=== PATIENT | female | born 1995 | race African-American/Black ===

== ENCOUNTER 2018-11-13 08:00 | Day surgery (SDC) | payer OTHER ==
[2018-11-13] MEDS ORDERED: PROPOFOL 200 MG/20 ML VIAL IV ONE (08:24)
[2018-11-13] MEDS ORDERED: LIDOCAINE 1% MPF 5 ML VIAL ONE (08:24)
[2018-11-13] MEDS ORDERED: MIDAZOLAM HCL 2 MG/2 ML INJ ONE (08:24)
[2018-11-13] MEDS ORDERED: DEXAMETHASONE 10 MG/ML VIAL ONE (08:24)
[2018-11-13] MEDS ORDERED: ONDANSETRON 4 MG/2 ML VIAL ONE ×2 (08:25→13:56)
[2018-11-13] MEDS ORDERED: NS 0.9% VIAL 10 ML ONE ×2 (08:25→08:34)
[2018-11-13] MEDS ORDERED: FENTANYL CITR 250 MCG/5 ML ONE ×2 (08:25→12:08)
[2018-11-13] MEDS ORDERED: VECURONIUM 10 MG/VIAL IV ONE (08:25)
[2018-11-13] MEDS ORDERED: CEFAZOLIN 1GM (PREMIX IV) 0 GM/0 ML BAG ONE (08:32)
[2018-11-13] MEDS ORDERED: SCOPOLAMINE HYDROBROMIDE PATCH TD ONE (08:32)
[2018-11-13] MEDS ORDERED: Ringers Lactate 1,000 ML IV ONE ×2 (08:32→08:35)
[2018-11-13] MEDS ORDERED: Mastisol Adhesive Liq ONE (08:34)
[2018-11-13] MEDS ORDERED: CEFAZOLIN 1GM (PREMIX IV) 1 GM/50 ML BAG ONE (08:34)
[2018-11-13] MEDS ORDERED: GENTAMICIN SULF 80 MG/2ML INJ ONE (08:34)
[2018-11-13] MEDS ORDERED: BACITRACIN 50000 UNIT VIAL ONE (08:35)
[2018-11-13] MEDS ORDERED: CLINDAMYCIN INJ 300 MG in NA CHLORIDE 0.9% 50 ML IV ONE (09:00)
[2018-11-13] MEDS ORDERED: METOCLOPRAMIDE 10 MG/2mL INJ ONE (10:23)
[2018-11-13] MEDS ORDERED: LABETALOL 20 MG/4ML SYRINGE IV ONE (10:59)
[2018-11-13] MEDS ORDERED: ROCURONIUM 50 MG/5 ML VIAL IV ONE ×2 (10:59→13:00)
[2018-11-13] MEDS ORDERED: Phenylephrine HCl 10 MG/ML 1 ML VIAL ONE (13:07)
[2018-11-13] MEDS ORDERED: NS 0.9% VIAL 20 ML ONE (13:08)
[2018-11-13] MEDS ORDERED: KETOROLAC 30 MG/ML INJ ONE ×2 (13:43→14:14)
[2018-11-13] MEDS ORDERED: GLYCOPYRROLATE 0.2 MG/ML SYR ONE (13:43)
[2018-11-13] MEDS ORDERED: NEOSTIGMINE 1 MG/ML -5 ML SYRINGE ONE (13:56)
[2018-11-13] MEDS: Ringers Lactate 1,000 ML IV ONE ×2 (14:14→14:19)
[2018-11-13] MEDS: HYDROMORPHONE HCL 2 MG/ML inj ONE ×2 (14:36→14:42)
--- NOTE | 2018-11-13 15:06 | RAD REPORT ---
EXAM DESCRIPTION: RAD - Chest Single View - 11/13/2018 2:44 pm CLINICAL HISTORY: Shortness of breath, possible aspiration COMPARISON: None. TECHNIQUE: AP portable chest image was obtained in semi upright positioning 1442 hours . FINDINGS: Patient is status post bilateral breast surgery. Drain tubes are seen along the lateral as pect of the breast soft tissue. The surgical changes create an overall hazy opacification across both lung peguero. A focal consolidation to indicate infectious or aspiration pneumonia is not confirmed. No pulmonary edema pattern. Heart size and pulmonary vasculature within normal limits. No measurable pleural effusion and no pneumothorax. No acute bony abnormality seen. No acute aortic findings suspec saul. IMPRESSION: Infectious or aspiration pneumonia is not currently suspected. There is no diffuse pulmo nary edema.
[2018-11-13] MEDS ORDERED: CODEINE 30MG/APAP 300MG TAB ONE (15:33)
--- NOTE | 2018-11-14 00:51 | OP ---
Surgeon: Nicholas Pérez MD Bioinformatics Research Technician: Momo. Preoperative Diagnosis: Breast enlargement. Postoperative Diagnosis: Breast enlargement. Procedure Performed: Reduction and lift. Anesthesia: General. Procedure In Detail: After satisfactory induction of general anesthesia, DuraPrep was used in both b reasts. Dry sterile drapes were applied in the usual manner. A 5-cm template was used to outline th e right areola. Then, the transverse and curvilinear incisions were made. The intervening skin was de-epithelialized with dermabrader and EpiCut. Then, electrocautery was used to elevate a flap towar d the sternum, clavicle, and anterior axillary line. Then, a lateral incision was made. The patient then underwent resection of the inferolateral excess breast tissue, and conization was performed. T his was done with 2-0 PDS sutures. Straps were then elevated from the base of the cone at the 12 o'c lock, 1:30 o'clock, and 3 o'clock positions. Straps were then woven in and out the pectoralis major muscle, back to the base of the cone, back to pectoralis major muscle, and eventually tied to themsel ves with 2-0 PDS. The 3 o'clock strap was sewn over the sternum the 3 o'clock position with 2-0 Ethi judge. Left side was done simultaneously in a mirror-image manner. The patient was then sat up. Sit e for new nipple-areolar complex was marked out. Tissue was cored out with 45-mm template. Nipple w as delivered and sewn with 4-0 PDS interrupted, followed by 4-0 PDS running subcuticular. Dressings consisted of tincture of benzoin, Steri-Strips, 5 x 5s, fluffs, and Dwaine wrap. The patient tolerated the procedure well. The amount __ from the left. MO/RUBA Voice ID: [id number] Report ID: [id number]
== END 2018-11-13 16:00 | disposition home or self-care (01) ==
LOC: OR 08:00
PROVIDERS: ATTEND Specialist
PROC: 0H0V0ZZ Alteration of Bilateral Breast, Open Approach (ICD-10-PCS; 2018-11-13)
PROC: 0H0V0ZZ Alteration of Bilateral Breast, Open Approach (ICD-10-PCS; principal; 2018-11-13 09:00)
DX: N62 Hypertrophy of breast (principal); N64.81 Ptosis of breast; Z88.0 Allergy status to penicillin
CPT/HCPCS: 36415; 71045; 84703; 88305; J0690; J1100; J1170; J1580; J2250; J2370; J2405; J2704; J2710; J2765; J3010